=== PATIENT | female | born 1985 | race Two or more races ===

== ENCOUNTER 2023-12-13 23:42 | Inpatient (IN) | payer MEDICAID, OTHER ==
[~2023-12-13] VITALS: Ht 152.4 cm; Wt 86.4 kg
[2023-12-14] VITALS (8 sets, daily range): BP systolic 103–117; BP diastolic 51–69; PULSE 50–70; RESP 12–20; TEMP 98–98.3; O2SAT 98–100
[2023-12-14 00:56] LABS: Basophils # (auto) 0.1 10 ^3/uL (0-0.2); Basophils % (auto) 1.1 % (0.0-2.0); Eosinophils # (auto) 0 10 ^3/uL (0-0.8); Eosinophils % (auto) 0.6 % (0.0-7.0); Hematocrit 24.7 % (36.0-46.0); Hemoglobin 7.1 g/dL (12.2-16.2); Lymphocytes # (auto) 1.3 10 ^3/uL (0.4-5.4); Lymphocytes % (auto) 17.6 % (10.0-50.0); Mean Corpuscular Hemoglobin 18.6 pg (28.0-32.0); Mean Corpuscular Hgb Conc. 28.9 g/dL (32.0-36.0); Mean Corpuscular Volume 64.5 fL (80.0-100.0); Monocytes # (auto) 0.4 10 ^3/uL (0-1.3); Monocytes % (auto) 5.8 % (0.0-12.0); Neutrophils # (auto) 5.6 10 ^3/uL (1.6-8.6); Neutrophils % (auto) 74.9 % (37.0-80.0); Red Blood Cells 3.83 10^6/uL (4.0-5.20); White Blood Cell 7.5 10^3/uL (4.4-10.8)
[2023-12-14 00:57] LABS: Red Cell Distribution Width 21.2 % (11.8-14.3)
[2023-12-14 00:58] LABS: Chloride 107 mmol/L (98-107); Potassium 3.8 mmol/L (3.5-5.1); Sodium 139 mmol/L (136-145)
[2023-12-14 00:59] LABS: Anion Gap 8 (5-15); Calcium 9.1 mg/dL (8.7-10.4); Carbon Dioxide 24 mmol/L (20-30)
[2023-12-14 01:04] LABS: BUN/Creatinine Ratio 12.7 (10.0-20.0); Blood Urea Nitrogen 9 mg/dL (9-23); Glucose 128 mg/dL (74-106); Lipase 39 U/L (12-53)
[2023-12-14 01:27] LABS: Anisocytosis Slight; Hypochromia Marked; Platelet Estimate Adequate
[2023-12-14] MEDS: PANTOPRAZOLE 40 MG TAB PO ONE (01:40)
[2023-12-14] MEDS: SODIUM CHLORIDE 0.9% 1,000 ML IV ONE (01:41)
[2023-12-14 04:11] LABS: Urine Bacteria None Seen /hpf (None Seen)
[2023-12-14] MEDS ORDERED: MORPHINE SULFATE INJ 2 MG/ml SYRG IV PRN ×2 (04:45→05:00)
[2023-12-14] MEDS ORDERED: HYDROcodone-ACET 5/325MG TAB PO PRN ×2 (04:45→05:00)
[2023-12-14] MEDS ORDERED: ONDANSETRON HCL 4 MG/2 ML VIAL IV PRN ×2 (04:45→05:00)
[2023-12-14] MEDS ORDERED: ACETAMINOPHEN 325 MG TAB PO PRN ×2 (04:45→05:00)
[2023-12-14 04:55] LABS: Urine Amorphous Crystal FEW /hpf (None Seen); Urine Blood Negative /uL (Negative); Urine Clarity Turbid (Clear); Urine Color Light-Yellow (Yellow); Urine Mucus FEW (None Seen); Urine Protein, UAD Negative (Negative); Urine Specific Gravity 1.017 (1.001-1.035); Urine Urobilinogen Normal (Negative); Urine WBC 4 /hpf (0 - 5); Urine pH 5.5 (5.0-9.0)
== END 2023-12-14 12:40 | disposition left against medical advice (07) | DRG 243 ==
LOC: EDBD 23:42 → ER 23:42 → OVERFLOW 12-14 04:38 → WEST WING 12-14 08:46
PROVIDERS: ADMIT Nurse Practitioner; ATTEND Internal Medicine
PROC: 30233N1 Transfusion of Nonautologous Red Blood Cells into Peripheral Vein, Percutaneous Approach (ICD-10-PCS; principal; 2023-12-14)
DX: K21.9 Gastro-esophageal reflux disease without esophagitis (principal); D64.9 Anemia, unspecified; R73.03 Prediabetes; Z53.29 Procedure and treatment not carried out because of patient's decision for other reasons; Z90.49 Acquired absence of other specified parts of digestive tract; Z98.84 Bariatric surgery status
CPT/HCPCS: 36415; 74176; 80048; 81001; 83690; 84484; 85025; 86850; 86900; 86901; 86920; 96360; G0378

== ENCOUNTER 2024-01-15 20:26 | Emergency (ER) | payer MEDICAID ==
[~2024-01-15] VITALS: Ht 154.9 cm; Wt 86.1 kg
[2024-01-15 21:23] VITALS: BP 123/74; PULSE 70; RESP 16; O2SAT 100
[2024-01-15 21:45] LABS: Urine Bacteria None Seen /hpf (None Seen)
[2024-01-15 21:51] LABS: Urine Blood 1+ /uL (Negative); Urine Clarity Turbid (Clear); Urine Color Yellow (Yellow); Urine Mucus FEW (None Seen); Urine Protein, UAD 1+ (Negative); Urine Specific Gravity 1.046 (1.001-1.035); Urine Urobilinogen Normal (Negative); Urine WBC 11 /hpf (0 - 5); Urine pH 5.5 (5.0-9.0)
== END 2024-01-15 23:37 | disposition left against medical advice (07) ==
LOC: ER 20:26
DX: R10.13 Epigastric pain (principal); Z53.21 Procedure and treatment not carried out due to patient leaving prior to being seen by health care provider
CPT/HCPCS: 81001; 81025